=== PATIENT | male | born 1965 | race Native Hawaiian/Other Pacific Islander ===

== ENCOUNTER 2023-02-18 09:47 | Outpatient (CLI) | payer BC | END 2023-02-18 20:07 | disposition home or self-care (01) | LOC: MRI 09:47 | PROVIDERS: ATTEND Physician Assistant | DX: M54.12 Radiculopathy, cervical region (principal) ==

== ENCOUNTER 2023-04-17 13:15 | Outpatient (CLI) | payer BC | END 2023-04-17 19:03 | disposition home or self-care (01) | LOC: MRI 13:15 | PROVIDERS: ATTEND Student in an Organized Health Care Education/Training Program | DX: M54.14 Radiculopathy, thoracic region (principal); M47.814 Spondylosis without myelopathy or radiculopathy, thoracic region ==